=== PATIENT | female | born 1940 | race Caucasian/White ===

== ENCOUNTER → 2018-09-10 14:52 | Oncology outpatient (ONC) | payer MEDICARE, OTHER, SELFPAY ==
[2018-09-10] MEDS: ZOLEDRONIC ACID 5 MG in SODIUM CHLORIDE 0.9% 100 ML 318.75 ML IV (15:18)
[2018-09-10 15:30] VITALS: BP 140/66; PULSE 96; RESP 18; TEMP 36.6
== END ==
LOC: ONC 14:56
PROVIDERS: Visit Provider Internal Medicine
DX: M89.9 Disorder of bone, unspecified (principal)
CPT/HCPCS: 96374; J3489

== ENCOUNTER → 2018-12-04 13:09 | Outpatient (CLI) | payer MEDICARE, OTHER, SELFPAY ==
--- NOTE | 2018-12-04 | DI.CT.S_ITS ---
PROCEDURE: CT SINUS SCREEN WO CON INDICATIONS: ACUTE MAXILLARY SINUSITIS TECHNIQUE: Noncontrast 3.0 mm axial images acquired from the frontal sinuses to the mid-sella, with coronal and sagittal reformats. For radiation dose reduction, the following was used: automated exposure control, adjustment of mA and/or kV according to patient size. COMPARISON: [facility], CT, SINUS W/O CONTRAST, 12/12/2012, 14:42. FINDINGS: Image quality: Excellent. Maxillary Sinuses: No bony remodeling or destruction. Bilateral antrectomies. Sinuses are clear. Ethmoid Air Cells: No bony remodeling or destruction. Sinuses are clear. Sphenoid Sinuses: No bony remodeling or destruction. Sinuses are clear. Frontal Sinuses: No bony remodeling or destruction. Sinuses are clear. Ostiomeatal Complexes: Ostiomeatal complexes are patent. No George cells. Miscellaneous: Visualized intra-orbital contents are normal. No ruperto bullosa or paradoxical turbinate curvature. Mild left nasal septal deviation. IMPRESSION: Postsurgical changes. No active sinusitis. Dictated by: Serg Beyer M.D. on 12/04/2018 at 13:37 Approved by: Serg Beyer M.D. on 12/04/2018 at 13:49
== END ==
PROVIDERS: PCP Internal Medicine; Visit Provider Internal Medicine
DX: J01.00 Acute maxillary sinusitis, unspecified (principal)
CPT/HCPCS: 70486

== ENCOUNTER → 2020-03-10 16:56 | Outpatient (ROUT) | payer MEDICARE, OTHER, SELFPAY ==
[2020-03-10 17:26] LABS: Add Manual Diff / Slide Review NO; Basophils Absolute Auto 100 /uL (0-100); Basophils Percent Auto 1.1 % (0-2); Eosinophils Absolute Auto 200 /uL (0-450); Eosinophils Percent Auto 3.8 % (2-4); Hematocrit 38.5 % (36-46); Hemoglobin 12.8 g/dL (12.0-16.0); Lymphocytes Absolute Auto 800 /uL (1100-4500); Lymphocytes Percent Auto 14.7 % (25-40); Mean Corpuscular HGB Conc 33.2 % (30-36); Mean Corpuscular Hemoglobin 29.5 PG (26-34); Mean Corpuscular Volume 88.8 fL (80-100); Monocytes Absolute Auto 400 /uL (0-900); Neutrophils Absolute Auto 4100 /uL (1500-7000); Neutrophils Percent Auto 73.4 % (50-75); Platelet Count 276 X10^3/uL (150-400); Red Blood Cell Count 4.34 X10^6/uL (4.0-5.2); White Blood Cell Count 5.6 X10^3/uL (4.5-11.0)
[2020-03-10 17:39] LABS: Aspartate Aminotransferase 26 IU/L (14-36); BUN Creatinine Ratio 15.2 (6-22); Blood Urea Nitrogen 23 mg/dL (7-17); Calcium 9.2 mg/dL (8.4-10.2); Carbon Dioxide 32 mmol/L (22-32); Chloride 98 mmol/L (98-107); Estimated Glomerular Filt Rate 33.4 mL/min (>60); Glucose 132 mg/dL (80-110); HEMOLYSIS < 15 (0-50); Sodium 136 mmol/L (137-145)
[2020-03-10 18:12] LABS: TSH w/ Reflex to FT4 1.99 uIU/mL (0.47-4.68)
[2020-03-10 21:27] LABS: Cholesterol 244 mg/dL (140-199); HDL Cholesterol 53 mg/dL (40-60); LDL Cholesterol Calculated 153 mg/dL (<100); Triglycerides 189 mg/dL (35-150)
== END ==
PROVIDERS: PCP Internal Medicine; Visit Provider Internal Medicine
DX: I10 Essential (primary) hypertension (principal); E78.2 Mixed hyperlipidemia
CPT/HCPCS: 80048; 80061; 84443; 84450; 85025

== ENCOUNTER → 2020-03-24 15:14 | Outpatient (ROUT) | payer MEDICARE, OTHER, SELFPAY ==
[2020-03-24 15:41] LABS: BUN Creatinine Ratio 19.2 (6-22); Blood Urea Nitrogen 23 mg/dL (7-17); Calcium 9.4 mg/dL (8.4-10.2); Carbon Dioxide 28 mmol/L (22-32); Chloride 97 mmol/L (98-107); Estimated Glomerular Filt Rate 43.6 mL/min (>60); Glucose 107 mg/dL (80-110); HEMOLYSIS 15 (0-50); Potassium 4.8 mmol/L (3.4-5.1); Sodium 135 mmol/L (137-145)
== END ==
PROVIDERS: PCP Internal Medicine; Visit Provider Internal Medicine
DX: I10 Essential (primary) hypertension (principal)
CPT/HCPCS: 80048

== ENCOUNTER → 2020-08-12 13:05 | Outpatient (CLI) | payer MEDICARE, OTHER, SELFPAY ==
--- NOTE | 2020-08-12 13:08 | DI.RAD.S_ITS ---
PROCEDURE: XR CHEST 2V INDICATIONS: cough, SOB, h/o covid in Dec, r/o pneumonia TECHNIQUE: 2 views of the chest were acquired. COMPARISON: [facility], CR, XR CHEST 1 VIEW, 11/06/2017, 19:29. [facility], CR, XR CHEST 1 VIEW, 06/15/2020, 16:18. FINDINGS: Surgical changes and devices: None. Lungs and pleura: Lungs are abnormal with a persistent alveolar infiltration pattern that is moderately patchy, and equivalent to that present in May of last year. Reportedly this represents a documented manifestation of atypical/viral pneumonia. No pleural effusions or pneumothorax. Mediastinum: Mediastinal contours are normal. Heart size is normal. Bones and chest wall: No suspicious bony abnormalities. Soft tissues appear unremarkable. IMPRESSION: Persistent alveolitis pattern equivalent to that initially identified 06/15/20. Persistent atypical pneumonia pattern. Dictated by: Byron Stanton M.D. on 08/12/2020 at 13:27 Approved by: Byron Stanton M.D. on 08/12/2020 at 13:29
== END ==
PROVIDERS: PCP Internal Medicine; Referring Provider Physician Assistant; Visit Provider Physician Assistant
DX: R50.9 Fever, unspecified (principal); R05 Cough; R06.02 Shortness of breath; Z86.16 Personal history of COVID-19
CPT/HCPCS: 71046

== ENCOUNTER → 2020-09-08 15:03 | Outpatient (ROUT) | payer MEDICARE, OTHER, SELFPAY ==
[2020-09-08 15:24] LABS: Add Manual Diff / Slide Review NO; Basophils Absolute Auto 100 /uL (0-100); Eosinophils Absolute Auto 200 /uL (0-450); Eosinophils Percent Auto 2.7 % (2-4); Hematocrit 34.9 % (36-46); Lymphocytes Absolute Auto 800 /uL (1100-4500); Lymphocytes Percent Auto 12.7 % (25-40); Mean Corpuscular HGB Conc 31.6 % (30-36); Mean Corpuscular Hemoglobin 25.5 PG (26-34); Mean Corpuscular Volume 80.9 fL (80-100); Monocytes Absolute Auto 600 /uL (0-900); Monocytes Percent Auto 9.5 % (3-14); Neutrophils Absolute Auto 4800 /uL (1500-7000); Neutrophils Percent Auto 74.1 % (50-75); Platelet Count 316 X10^3/uL (150-400); Red Blood Cell Count 4.31 X10^6/uL (4.0-5.2); Red Cell Distribution Width 16.7 % (11.6-14.8); White Blood Cell Count 6.5 X10^3/uL (4.5-11.0)
[2020-09-08 15:49] LABS: Erythrocyte Sedimentation Rate 38 MM/HR (0-20)
[2020-09-08 16:15] LABS: Alanine Aminotransferase 20 IU/L (<35); Albumin 4.2 g/dL (3.5-5.0); Albumin Globulin Ratio 1.4 (1.0-2.8); Alkaline Phosphatase 108 U/L (38-126); Aspartate Aminotransferase 25 IU/L (14-36); BUN Creatinine Ratio 17.7 (6-22); Bilirubin Total 0.2 mg/dL (0.2-1.3); Blood Urea Nitrogen 25 mg/dL (7-17); C-Reactive Protein Quant 1.7 mg/dL (<1.0); Calcium 9.8 mg/dL (8.4-10.2); Carbon Dioxide 32 mmol/L (22-32); Chloride 96 mmol/L (98-107); Cholesterol 208 mg/dL (140-199); Estimated Glomerular Filt Rate 36.1 mL/min (>60); Globulin 2.9 g/dL (1.7-4.1); Glucose 95 mg/dL (80-110); HDL Cholesterol 64 mg/dL (40-60); HEMOLYSIS < 15 (0-50); LDL Cholesterol Calculated 118 mg/dL (<100); Phosphorous 5.1 mg/dL (2.8-4.1); Potassium 4.7 mmol/L (3.4-5.1); Sodium 136 mmol/L (137-145); Total Protein 7.1 g/dL (6.3-8.2); Triglycerides 131 mg/dL (35-150)
[2020-09-08 16:17] LABS: Hemoglobin A1C% w Est Avg Glu 6.3 % (4.0-6.0)
[2020-09-09 08:29] LABS: Parathyroid Hormone Int 63 pg/mL (15-65)
== END ==
PROVIDERS: PCP Internal Medicine; Visit Provider Internal Medicine
DX: J18.9 Pneumonia, unspecified organism (principal)
CPT/HCPCS: 80053; 80061; 83036; 83970; 84100; 85025; 85651; 86140

== ENCOUNTER → 2020-09-21 09:07 | Outpatient (CLI) | payer MEDICARE, SELFPAY ==
[2020-09-21 10:23] LABS: COVID19 -Nasal RAPID Negative (Negative)
== END ==
PROVIDERS: PCP Internal Medicine; Referring Provider Internal Medicine; Visit Provider Internal Medicine
DX: Z20.822 Contact with and (suspected) exposure to COVID-19 (principal)
CPT/HCPCS: 87635; C9803

== ENCOUNTER → 2020-09-22 12:53 | Outpatient (CLI) | payer MEDICARE, OTHER, SELFPAY ==
--- NOTE | 2020-09-28 10:26 | PM.PFT.1 ---
Pulmonary Function Test Referral & Results Date Patient Seen: 09/22/20 Requesting provider: Juancarlos Zapata Results: The spirometry demonstrates an FVC of 1.25 L which is 48% of predicted. The FEV1 was measured at 1.0 L which is 52% of predicted. The FEV1/FVC ratio was 80 which is 108% of predicted. Following the administration of bronchodilator there was a 41% improvement in FEF 25-75%. Lung volumes show an SVC of 1.66 L which is 63% of predicted. The diffusing capacity was measured at 18.07 which is 78% of predicted. No hemoglobin value was provided, so no correction for potential anemia could be made, if appropriate. The maximum voluntary ventilation was severely reduced Interpretation: This study demonstrates mild obstructive lung disease based on reduction FEV1 although FEV1/FVC ratio is preserved. There is also evidence of some benefit in small airway flow based on improvement in FEF 25-75%, after bronchodilator was administered There is also moderate reduction in lung volumes suggesting restrictive lung disease is present There is a minimal reduction in diffusing capacity, unless patient is anemic
== END ==
PROVIDERS: PCP Internal Medicine; Referring Provider Internal Medicine; Visit Provider Internal Medicine
DX: R06.02 Shortness of breath (principal)
CPT/HCPCS: 94060; 94726; 94729

== ENCOUNTER → 2020-09-29 13:58 | Outpatient (CLI) | payer MEDICARE, OTHER, SELFPAY | PROVIDERS: PCP Internal Medicine; Referring Provider Internal Medicine; Visit Provider Internal Medicine | DX: M85.862 Other specified disorders of bone density and structure, left lower leg (principal); M85.861 Other specified disorders of bone density and structure, right lower leg; Z78.0 Asymptomatic menopausal state | CPT/HCPCS: 77080 ==

== ENCOUNTER → 2020-11-01 19:05 | Outpatient (ROUT) | payer MEDICARE, OTHER, SELFPAY ==
[2020-11-01 19:58] LABS: Blood Urea Nitrogen 29 mg/dL (7-17); Calcium 9.2 mg/dL (8.4-10.2); Carbon Dioxide 30 mmol/L (22-32); Chloride 89 mmol/L (98-107); Glucose 124 mg/dL (80-110); HEMOLYSIS < 15 (0-50); Potassium 3.9 mmol/L (3.4-5.1); Sodium 131 mmol/L (137-145)
== END ==
PROVIDERS: PCP Internal Medicine; Visit Provider Internal Medicine
DX: R60.9 Edema, unspecified (principal)
CPT/HCPCS: 80048

== ENCOUNTER → 2020-11-02 14:42 | Outpatient (CLI) | payer MEDICARE, OTHER, SELFPAY ==
--- NOTE | 2020-11-02 | DI.CT.S_ITS ---
PROCEDURE: CT ABDOMEN PELVIS WO CON INDICATIONS: edema, unspecified abdominal pain TECHNIQUE: Noncontrast 5 mm thick sections acquired from the diaphragms to the symphysis. 5 mm coronal and sagittal reformats were then performed. For radiation dose reduction, the following was used: automated exposure control, adjustment of mA and/or kV according to patient size. COMPARISON: [facility], RG, PELVIS 1 OR 2VW, 12/30/2017, 14:55. [facility], MR, MR LUMBAR SPINE WITHOUT CONTRAST, 07/09/2018, 10:08. FINDINGS: Image quality: Reduced by absence of both oral and intravenous contrast.. ABDOMEN: Lung bases: Lung bases are clear except for mild linear atelectasis at the anterior right lung base. A small degree of atelectasis also appears present at the lateral left lower lobe.. Heart size is normal. Solid organs: Liver is normal in size. Gallbladder has been previously resected all . Pancreas is normal in contours. Spleen is normal in size. No adrenal nodules. Kidneys are normal in size, without hydronephrosis or nephrolithiasis. Peritoneum and bowel: Unenhanced bowel loops demonstrate normal wall thickness and caliber. No free fluid or air. Nodes and vessels: No retroperitoneal or mesenteric adenopathy by size criteria. Aorta and inferior vena cava are normal in caliber. Miscellaneous: No ventral hernias. PELVIS: Genitourinary: Bladder wall thickness is normal. A complex cystic and solid mass appears present at the right paramedian posterior pelvis, which is somewhat poorly visualized due to absence of both oral and intravenous contrast. This mass measures up to 7.3 x 7.6 cm, is located slightly to the right of midline, and has imaging characteristics suggestive of ovarian origin. This mass has a craniocaudad height of approximately 9.4 cm, and what appears to be a complex but predominantly cystic component superiorly measuring approximately 6.8 x 5.9 cm. Miscellaneous: No inguinal hernias or adenopathy. Bones: No suspicious bony lesions. No vertebral body compression fractures. IMPRESSION: Gynecological consultation is recommended and also pelvic ultrasound appears warranted for further characterization of a 7.6 cm maximal dimension complex cystic and solid mass at and to the right of midline likely involving the right ovary. The exact anatomic detail of this structure is difficult to define, and the complexity of the mass is best seen on the coronal re-formation imaging from source axial data, centered on series 4, image 47. Through the peritoneal space of the abdomen and pelvis no metastatic disease or evidence of carcinomatosis and ascites is found. Dictated by: Byron Stanton M.D. on 11/02/2020 at 15:35 Approved by: Byron Stanton M.D. on 11/02/2020 at 15:44
--- NOTE | 2020-11-02 | DI.US.S_ITS ---
PROCEDURE: US PERIPH VENOUS LOW EXTREM BI INDICATIONS: Short of breath; EDEMA TECHNIQUE: Real-time imaging, as well as color and pulse Doppler interrogation, were performed of the deep veins of both legs from the inguinal ligament to the popliteal fossa. COMPARISON: None. FINDINGS: Right: The common femoral, femoral and popliteal veins are normally compressible, and free of intraluminal thrombus. Color and pulse Doppler demonstrate normal phasic intravascular flow. There is normal augmentation response to distal compression maneuver. Left: The common femoral, femoral and popliteal veins are normally compressible, and free of intraluminal thrombus. Color and pulse Doppler demonstrate normal phasic intravascular flow. There is normal augmentation response to distal compression maneuver. IMPRESSION: Negative for deep venous thrombosis. Dictated by: Tyree Goodman M.D. on 11/02/2020 at 14:37 Approved by: Tyree Goodman M.D. on 11/02/2020 at 14:38
== END ==
PROVIDERS: PCP Internal Medicine; Referring Provider Internal Medicine; Visit Provider Internal Medicine
DX: R60.9 Edema, unspecified (principal); R10.9 Unspecified abdominal pain; R06.02 Shortness of breath; R19.09 Other intra-abdominal and pelvic swelling, mass and lump
CPT/HCPCS: 74176; 93970

== ENCOUNTER → 2020-11-07 19:40 | Outpatient (ROUT) | payer MEDICARE, OTHER, SELFPAY ==
[2020-11-07 20:57] LABS: Add Manual Diff / Slide Review NO; Basophils Absolute Auto 100 /uL (0-100); Eosinophils Absolute Auto 0 /uL (0-450); Eosinophils Percent Auto 0.1 % (2-4); Hematocrit 30.8 % (36-46); Hemoglobin 9.8 g/dL (12.0-16.0); Lymphocytes Absolute Auto 900 /uL (1100-4500); Lymphocytes Percent Auto 9.9 % (25-40); Mean Corpuscular HGB Conc 31.8 % (30-36); Mean Corpuscular Hemoglobin 24.7 PG (26-34); Mean Corpuscular Volume 77.8 fL (80-100); Monocytes Absolute Auto 800 /uL (0-900); Monocytes Percent Auto 8.8 % (3-14); Neutrophils Absolute Auto 6900 /uL (1500-7000); Neutrophils Percent Auto 80.2 % (50-75); Platelet Count 320 X10^3/uL (150-400); Red Blood Cell Count 3.96 X10^6/uL (4.0-5.2); Red Cell Distribution Width 15.9 % (11.6-14.8); White Blood Cell Count 8.6 X10^3/uL (4.5-11.0)
[2020-11-08 07:23] LABS: BUN Creatinine Ratio 27.6 (6-22); Blood Urea Nitrogen 34 mg/dL (7-17); Calcium 9.7 mg/dL (8.4-10.2); Carbon Dioxide 35 mmol/L (22-32); Chloride 94 mmol/L (98-107); Estimated Glomerular Filt Rate 42.2 mL/min (>60); Glucose 139 mg/dL (80-110); HEMOLYSIS < 15 (0-50); Potassium 5.1 mmol/L (3.4-5.1); Sodium 135 mmol/L (137-145)
[2020-11-08 07:33] LABS: NT-proBNP (BNP-Adult 18+) 2750 pg/mL (<450)
[2020-11-08 07:54] LABS: Cancer Antigen 125 21.6 U/mL (0-35)
[2020-11-08 10:17] LABS: HEMOLYSIS < 15 (0-50); Iron 16 ug/dL (37-170)
[2020-11-08 10:27] LABS: Percent Iron Saturation 3 % (15-50); Total Iron Binding Capacity 517 ug/dL (265-497); Transferrin 434 mg/dL (206-381)
[2020-11-08 12:08] LABS: Ferritin 10 ng/mL (11-264)
== END ==
PROVIDERS: PCP Internal Medicine; Visit Provider Internal Medicine
DX: R60.9 Edema, unspecified (principal); I50.32 Chronic diastolic (congestive) heart failure; N83.9 Noninflammatory disorder of ovary, fallopian tube and broad ligament, unspecified; C56.9 Malignant neoplasm of unspecified ovary
CPT/HCPCS: 80048; 82728; 83540; 83550; 83880; 85025; 86304

== ENCOUNTER → 2020-11-14 19:17 | Outpatient (ROUT) | payer MEDICARE, OTHER, SELFPAY ==
[2020-11-14 19:57] LABS: BUN Creatinine Ratio 27.8 (6-22); Blood Urea Nitrogen 37 mg/dL (7-17); Calcium 10.3 mg/dL (8.4-10.2); Carbon Dioxide 36 mmol/L (22-32); Chloride 93 mmol/L (98-107); Estimated Glomerular Filt Rate 38.6 mL/min (>60); Glucose 132 mg/dL (80-110); HEMOLYSIS < 15 (0-50); Sodium 139 mmol/L (137-145)
[2020-11-14 19:58] LABS: Potassium 5.7 mmol/L (3.4-5.1)
== END ==
PROVIDERS: PCP Internal Medicine; Visit Provider Internal Medicine
DX: I50.31 Acute diastolic (congestive) heart failure (principal)
CPT/HCPCS: 80048

== ENCOUNTER → 2021-11-01 12:47 | Outpatient (CLI) | payer MEDICARE, OTHER, SELFPAY ==
[2021-11-01 13:28] LABS: Hematocrit 35.2 % (36-46); Hemoglobin 11.4 g/dL (12.0-16.0); Mean Corpuscular HGB Conc 32.5 % (30-36); Mean Corpuscular Hemoglobin 25.8 PG (26-34); Mean Corpuscular Volume 79.4 fL (80-100); Platelet Count 230 X10^3/uL (150-400); Red Blood Cell Count 4.43 X10^6/uL (4.0-5.2); Red Cell Distribution Width 16.6 % (11.6-14.8); White Blood Cell Count 6.8 X10^3/uL (4.5-11.0)
[2021-11-01 13:39] LABS: Alanine Aminotransferase 16 IU/L (<35); Albumin 4.5 g/dL (3.5-5.0); Albumin Globulin Ratio 1.3 (1.0-2.8); Alkaline Phosphatase 100 U/L (38-126); Aspartate Aminotransferase 24 IU/L (14-36); Bilirubin Total 0.3 mg/dL (0.2-1.3); Calcium 9.6 mg/dL (8.4-10.2); Chloride 83 mmol/L (98-107); Cholesterol 245 mg/dL (140-199); Estimated Glomerular Filt Rate 22 mL/min (>60); Globulin 3.4 g/dL (1.7-4.1); Glucose 147 mg/dL (80-110); HDL Cholesterol 41 mg/dL (40-60); HEMOLYSIS < 15 (0-50); LDL Cholesterol Calculated 157 mg/dL (<100); Potassium 2.9 mmol/L (3.4-5.1); Sodium 134 mmol/L (137-145); Total Protein 7.9 g/dL (6.3-8.2); Triglycerides 235 mg/dL (35-150)
[2021-11-01 13:46] LABS: NT-proBNP (BNP-Adult 18+) 1170 pg/mL (<450)
[2021-11-01 13:48] LABS: BUN Creatinine Ratio 48.7 (6-22)
[2021-11-01 14:30] LABS: TSH w/ Reflex to FT4 1.21 uIU/mL (0.47-4.68)
[2021-11-01 15:36] LABS: Blood Urea Nitrogen 110 mg/dL (7-17); Carbon Dioxide 40 mmol/L (22-32)
== END ==
PROVIDERS: PCP Internal Medicine; Referring Provider Internal Medicine; Visit Provider Internal Medicine
DX: E78.2 Mixed hyperlipidemia (principal); I50.32 Chronic diastolic (congestive) heart failure; I25.10 Atherosclerotic heart disease of native coronary artery without angina pectoris; N18.31 Chronic kidney disease, stage 3a
CPT/HCPCS: 36415; 80053; 80061; 83880; 84443; 85027

== ENCOUNTER → 2021-12-14 17:03 | Outpatient (CLI) | payer MEDICARE, OTHER, SELFPAY ==
[2021-12-14 18:40] LABS: Hemoglobin 10.3 g/dL (12.0-16.0); Mean Corpuscular HGB Conc 32.1 % (30-36); Mean Corpuscular Hemoglobin 25.4 PG (26-34); Mean Corpuscular Volume 79.1 fL (80-100); Platelet Count 280 X10^3/uL (150-400); Red Blood Cell Count 4.04 X10^6/uL (4.0-5.2); Red Cell Distribution Width 17.5 % (11.6-14.8); White Blood Cell Count 5.8 X10^3/uL (4.5-11.0)
[2021-12-17 15:21] LABS: HEMOLYSIS < 15 (0-50); Iron 23 ug/dL (37-170)
[2021-12-17 15:25] LABS: Alanine Aminotransferase 14 IU/L (<35); Albumin 4.4 g/dL (3.5-5.0); Albumin Globulin Ratio 1.4 (1.0-2.8); Alkaline Phosphatase 78 U/L (38-126); Aspartate Aminotransferase 20 IU/L (14-36); Bilirubin Total 0.2 mg/dL (0.2-1.3); Calcium 9.1 mg/dL (8.4-10.2); Carbon Dioxide 36 mmol/L (22-32); Chloride 87 mmol/L (98-107); Estimated Glomerular Filt Rate 19 mL/min (>60); Globulin 3.1 g/dL (1.7-4.1); Glucose 142 mg/dL (80-110); HEMOLYSIS < 15 (0-50); Potassium 3.1 mmol/L (3.4-5.1); Sodium 135 mmol/L (137-145); Total Protein 7.5 g/dL (6.3-8.2)
[2021-12-17 15:27] LABS: BUN Creatinine Ratio 41.3 (6-22); Blood Urea Nitrogen 105 mg/dL (7-17)
[2021-12-17 15:33] LABS: Percent Iron Saturation 4 % (15-50); Total Iron Binding Capacity 531 ug/dL (265-497); Transferrin 402 mg/dL (206-381)
[2021-12-17 15:59] LABS: Cancer Antigen 125 25.5 U/mL (0-35)
[2021-12-17 16:02] LABS: Ferritin 10 ng/mL (11-264)
== END ==
PROVIDERS: PCP Internal Medicine; Referring Provider Internal Medicine; Visit Provider Internal Medicine
DX: E78.2 Mixed hyperlipidemia (principal); N18.31 Chronic kidney disease, stage 3a; I10 Essential (primary) hypertension; I25.10 Atherosclerotic heart disease of native coronary artery without angina pectoris; N83.201 Unspecified ovarian cyst, right side
CPT/HCPCS: 36415; 80053; 82728; 83540; 83550; 85027; 86304

== ENCOUNTER → 2021-12-18 15:39 | Outpatient (CLI) | payer MEDICARE, OTHER, SELFPAY ==
--- NOTE | 2021-12-18 15:42 | DI.ECHO.S_ITS ---
[facility]---------+ [facility] +---------+ : : [address] : : : : [id number] : : : : Phone: [phone]+ Echocardiogram Report + + :Name: TESSA LEWIS Study Date: 12/18/2021 Height: 62.5 in: :[facility] ReadingLocation: Weight: 227 lb : : Gender: Female BSA: 2.0 m2 : :: 1940 Age: 81 yrs BP: 138/84 mmHg: :Reason For Study: CONGESTIVE HEART FAILURE, AORTIC STENOSIS : :Ordering Physician: CARMEN, : :ROSALBA Performed By: Malena Salazar : :Referring: ROSALBA MORALES : + + Interpretation Summary The ejection fraction is estimated to be 60-65%. There is mild aortic stenosis. The peak aortic velocity is 2.7 m/sec. The right ventricular systolic pressure is estimated to be at least 29 mmHg based on an estimated right atrial pressure of 3 mm Hg. Procedure: A two-dimensional transthoracic echocardiogram with color flow and Doppler was performed. The study quality was technically adequate. Comparison is made with the echocardiogram of 11/08/2017. The patient had frequent PVCs during the exam. The heart rate ranged between 83-134 bpm during the study. Left Ventricle: The left ventricle is normal in size and wall thickness. The ejection fraction is estimated to be 60-65%. There are no obvious focal wall motion abnormalities noted but poor endocardial definition reduces the sensitivity for the detection of such. Right Ventricle: The right ventricle is normal in size and function. Atria: The left atrium is moderately dilated. Right atrial size is normal. There is no Doppler evidence for an interatrial shunt. Mitral Valve: The mitral valve leaflets appear mildly thickened, but open well. There is moderate mitral annular calcification. There is trace mitral regurgitation. Aortic Valve: The aortic valve is trileaflet. The aortic valve is mildly calcified. There is mild aortic stenosis. The peak aortic velocity is 2.7 m/sec. The aortic valve mean gradient is 19 mmHg. The calculated aortic valve area is 1.3 cm2. There is trace aortic regurgitation. Tricuspid Valve: The tricuspid valve is normal in structure and function. The right ventricular systolic pressure is estimated to be at least 29 mmHg based on an estimated right atrial pressure of 3 mm Hg. There is trace tricuspid regurgitation. Pulmonic Valve: The pulmonic valve is not well visualized. There is no pulmonic valvular regurgitation. Great Vessels: The aortic root is normal size. The dimensions of the ascending aorta are normal. The IVC is of normal diameter and collapses greater than 50% with a sniff. This suggests a low right atrial pressure of 3 mm Hg. Pericardium/ Pleura There is no pericardial effusion. There is no pleural effusion. MMode/2D Measurements & Calculations LVIDd: 4.6 cm LVOT diam: 2.0 cm LVIDs: 3.0 cm Ao root diam: 3.0 cm FS: 34.3 % asc Aorta Diam: 3.3 cm IVSd: 0.96 cm LVPWd: 1.3 cm LV osborn. diameter/BSA (cm/m^2): 2.3 LV sys. diameter/BSA (cm/m^2): 1.5 LA A2 area: 22.9 cm2 RA long axis: 4.8 cm LA A4 area: 27.8 cm2 RA area: 16.5 cm2 LA length (vol): 6.1 cm RA vol: 47.7 ml LA vol: 88.4 ml RA : 23.5 ml/m2 LA vol index: 43.6 ml/m2 IVC diam: 1.9 cm RVD1 (basal): 3.1 cm RVD2 (mid): 2.9 cm TAPSE: 2.0 cm Doppler Measurements & Calculations Ao V2 max: 277.5 cm/sec LVOT Max Jose: 113.6 cm/sec Ao V2 mean: 192.6 cm/sec LV V1 max P.2 mmHg Ao max P.1 mmHg LV V1 VTI: 25.8 cm Ao mean P.5 mmHg GERBER(I,D): 1.6 cm2 Ao V2 VTI: 54.2 cm GERBER(V,D): 1.3 cm2 sev ratio: 0.48 GERBER indexed to BSA (cm^2/m^2): 0.76 MV E max jose: 109.1 cm/sec TR max jose: 255.6 cm/sec MV A max jose: 144.3 cm/sec TR max P.1 mmHg MV E/A: 0.76 PA V2 max: 128.7 cm/sec Med Peak E' Jose: 9.2 cm/sec PA V2 mean: 94.8 cm/sec E/E' med: 11.9 PA mean P.8 mmHg Lat Peak E' Jose: 6.9 cm/sec PA pr(Accel): 46.5 mmHg E/E' lat: 15.8 E/e' average: 13.8 MV dec time: 0.19 sec SV(LVOT): 84.1 ml Reading Physician:09:53 AM
== END ==
PROVIDERS: PCP Internal Medicine; Referring Provider Internal Medicine; Visit Provider Internal Medicine
DX: I35.0 Nonrheumatic aortic (valve) stenosis (principal); I50.32 Chronic diastolic (congestive) heart failure
CPT/HCPCS: 93306

== ENCOUNTER → 2022-01-10 11:07 | Outpatient (CLI) | payer MEDICARE, OTHER, SELFPAY ==
[2022-01-10 12:25] LABS: Hematocrit 28.9 % (36-46); Hemoglobin 9.4 g/dL (12.0-16.0); Mean Corpuscular HGB Conc 32.5 % (30-36); Mean Corpuscular Hemoglobin 25.7 PG (26-34); Mean Corpuscular Volume 79.3 fL (80-100); Platelet Count 346 X10^3/uL (150-400); Red Blood Cell Count 3.65 X10^6/uL (4.0-5.2); Red Cell Distribution Width 19.3 % (11.6-14.8); White Blood Cell Count 10.4 X10^3/uL (4.5-11.0)
[2022-01-10 12:43] LABS: Alanine Aminotransferase 29 IU/L (<35); Albumin 4.1 g/dL (3.5-5.0); Albumin Globulin Ratio 1.4 (1.0-2.8); Alkaline Phosphatase 119 U/L (38-126); Aspartate Aminotransferase 28 IU/L (14-36); BUN Creatinine Ratio 51.7 (6-22); Bilirubin Total 0.3 mg/dL (0.2-1.3); Blood Urea Nitrogen 60 mg/dL (7-17); Calcium 8.8 mg/dL (8.4-10.2); Chloride 83 mmol/L (98-107); Estimated Glomerular Filt Rate 48 mL/min (>60); Globulin 2.9 g/dL (1.7-4.1); Glucose 156 mg/dL (80-110); HEMOLYSIS < 15 (0-50); Potassium 3.1 mmol/L (3.4-5.1); Sodium 137 mmol/L (137-145)
[2022-01-10 12:49] LABS: Carbon Dioxide 37 mmol/L (22-32)
[2022-01-10 13:17] LABS: Ferritin 22 ng/mL (11-264)
[2022-01-10 21:38] LABS: HEMOLYSIS < 15 (0-50); Iron 33 ug/dL (37-170)
[2022-01-10 22:00] LABS: Percent Iron Saturation 8 % (15-50); Total Iron Binding Capacity 434 ug/dL (265-497); Transferrin 320 mg/dL (206-381)
== END ==
PROVIDERS: PCP Internal Medicine; Referring Provider Internal Medicine; Visit Provider Internal Medicine
DX: N18.31 Chronic kidney disease, stage 3a (principal); D64.9 Anemia, unspecified; I25.10 Atherosclerotic heart disease of native coronary artery without angina pectoris
CPT/HCPCS: 36415; 80053; 82728; 83540; 83550; 85027

== ENCOUNTER → 2022-02-01 16:28 | Outpatient (CLI) | payer MEDICARE, OTHER, SELFPAY ==
[2022-02-01 18:01] LABS: Alanine Aminotransferase 17 IU/L (<35); Albumin 4.2 g/dL (3.5-5.0); Albumin Globulin Ratio 1.3 (1.0-2.8); Alkaline Phosphatase 112 U/L (38-126); Aspartate Aminotransferase 21 IU/L (14-36); BUN Creatinine Ratio 34.1 (6-22); Bilirubin Total 0.2 mg/dL (0.2-1.3); Blood Urea Nitrogen 56 mg/dL (7-17); Calcium 9.2 mg/dL (8.4-10.2); Chloride 86 mmol/L (98-107); Estimated Glomerular Filt Rate 32 mL/min (>60); Globulin 3.3 g/dL (1.7-4.1); Glucose 119 mg/dL (80-110); HEMOLYSIS < 15 (0-50); Potassium 2.9 mmol/L (3.4-5.1); Sodium 134 mmol/L (137-145); Total Protein 7.5 g/dL (6.3-8.2)
[2022-02-01 18:28] LABS: Carbon Dioxide 42 mmol/L (22-32)
== END ==
PROVIDERS: PCP Internal Medicine; Referring Provider Internal Medicine; Visit Provider Internal Medicine
DX: I50.32 Chronic diastolic (congestive) heart failure (principal); J96.11 Chronic respiratory failure with hypoxia
CPT/HCPCS: 36415; 80053

== ENCOUNTER → 2022-02-09 12:55 | Outpatient (CLI) | payer MEDICARE, OTHER, SELFPAY ==
[2022-02-09 15:43] LABS: BUN Creatinine Ratio 56.1 (6-22); Blood Urea Nitrogen 74 mg/dL (7-17); Calcium 9.1 mg/dL (8.4-10.2); Chloride 87 mmol/L (98-107); Estimated Glomerular Filt Rate 41 mL/min (>60); Glucose 126 mg/dL (80-110); HEMOLYSIS < 15 (0-50); Potassium 3.1 mmol/L (3.4-5.1); Sodium 137 mmol/L (137-145)
[2022-02-09 16:04] LABS: Carbon Dioxide 39 mmol/L (22-32)
== END ==
PROVIDERS: PCP Internal Medicine; Referring Provider Internal Medicine; Visit Provider Internal Medicine
DX: E87.6 Hypokalemia (principal)
CPT/HCPCS: 36415; 80048

== ENCOUNTER 2022-03-01 16:16 | Emergency (ER) | payer MEDICARE, OTHER, SELFPAY ==
[2022-03-01 16:40] VITALS: BP 145/69; PULSE 102; RESP 26; TEMP 36.9; O2SAT 93; BMI 45.7
[2022-03-01 19:30] VITALS: BP 147/80; PULSE 91; RESP 24; O2SAT 92
[2022-03-01 19:31] VITALS: PULSE 98; O2SAT 93
--- NOTE | 2022-03-01 19:44 | ED.EXTPRO ---
HPI - Extremity Problem General Chief complaint: Extremity Problem,Nontraumatic Stated complaint: possible spider bite arm going down leg now Time Seen by Provider: 03/01/22 18:06 Source: patient and family Mode of arrival: Wheelchair History of Present Illness HPI Narrative: 81F non smoker with extensive medical history including Aortic Stenosis, depression, paroxysmal AFib, chronic respiratory failure with hypoxemia on home oxygen, chronic kidney disease and coronary artery disease presents with family in the chief complaint of some redness and minimal swelling on her left forearm. She has psoriasis and on occasion gets cracks in the skin and subsequent super infections. She has had some redness extending from her elbow down the lateral side of her forearm for the past few days. She denies systemic findings including fever, chills nor nausea or vomiting. She feels quite well otherwise and has no complaints. We did discuss doing a large workup including labs and the possibility of imaging but she and family state it is not necessary and if she moves in the wrong direction they will return. Related Data Home Medications Medication Instructions Recorded Confirmed beclomethasone dipropionate 80 g inhalation 09/22/21 02/14/22 mcg/actuation HFA breath activated aerosol (Qvar RediHaler) carvedilol 3.125 mg tablet 3.125 mg PO BID 09/22/21 02/14/22 clopidogrel 75 mg tablet 75 mg PO DAILY 09/22/21 02/14/22 hydrocodone 10 mg-acetaminophen 1 tab PO QID PRN pain 09/22/21 02/14/22 325 mg tablet magnesium oxide 400 mg (241.3 mg 400 mg PO BID 09/22/21 02/14/22 magnesium) tablet mupirocin 2 % topical ointment g topical 09/22/21 02/14/22 pramipexole 0.25 mg tablet 0.5 mg PO BEDTIME 09/22/21 02/14/22 syringe with needle 3 mL 25 gauge #1 ea 09/22/21 02/14/22 x 1 (BD Luer-Myra Syringe) tizanidine 2 mg tablet 4 mg PO DAILY 09/22/21 02/14/22 clobetasol 0.05 % scalp solution 1 applic topical DAILY PRN 01/10/22 02/14/22 clobetasol 0.05 % topical cream 1 applic topical BID PRN 01/10/22 02/14/22 ketoconazole 2 % shampoo 1 applic topical 2XW PRN 01/10/22 02/14/22 torsemide 20 mg tablet 40 mg PO DAILY 01/10/22 02/14/22 Previous Rx's Medication Instructions Recorded pantoprazole 40 mg tablet,delayed 40 mg PO BID #180 tabs 02/01/22 release tiotropium 2.5 mcg-olodaterol 2.5 2 inh inhalation TID #12 grams 02/01/22 mcg/actuation mist for inhalation (Stiolto Respimat) cyanocobalamin (vitamin B-12) 1,000 mcg IM QWEEK #10 mL 02/05/22 1,000 mcg/mL injection solution metolazone 5 mg tablet 5 mg PO DAILY #90 tabs 02/05/22 potassium chloride 10 mEq 10 meq PO BID #180 caps 02/08/22 capsule,extended release mirtazapine 30 mg tablet 30 mg PO DAILY #90 tabs 02/13/22 budesonide 3 mg See Rx Instructions .Route 02/23/22 capsule,delayed,extended release .COMPLEX #270 caps doxycycline hyclate 100 mg tablet 100 mg PO BID #20 tabs 03/01/22 Allergies Allergy/AdvReac Type Severity Reaction Status Date / Time atorvastatin [From Lipitor] Allergy Intermediate Muscle Pain Verified 03/01/22 16:46 midazolam [From Versed] Allergy Intermediate Hallucinati Verified 03/01/22 16:46 ng aspirin Allergy Unknown Verified 03/01/22 16:46 NSAIDS (Non-Steroidal Allergy Unknown Verified 03/01/22 16:46 Anti-Inflamma gabapentin AdvReac Intermediate Muscle Pain Verified 03/01/22 16:46 adhesive AdvReac Mild Hives Verified 03/01/22 16:46 Review of Systems Review of Systems Narrative: GENERAL: Denies chills, fatigue, malaise, fever, sweats. HEENT: Denies sinus pain, ear pain, sore throat, difficulty swallowing, dizziness. RESPIRATORY: Denies dyspnea, cough, wheezing, hemoptysis, sputum. CARDIOVASCULAR: Denies chest pain, palpitations, orthopnea, edema, GASTROINTESTINAL: Denies nausea, vomiting, abdominal pain, diarrhea, constipation, melena. : Denies dysuria, frequency, incontinence, hematuria, urinary retention. MUSCULOSKELETAL: denies weakness, joint pain, or bony pain SKIN: See HPI NEUROLOGIC: Denies weakness, headache, numbness, change in speech, confusion, seizures, incoordination. PSYCHIATRIC: No concerning psychosocial issues. 12 point review of systems is negative except for those stated above Patient History Medical History Acute bronchitis Anemia Aortic valve stenosis, nonrheumatic Cataracts, bilateral (~2015) Cervical spine disease (~1993) Chicken pox Chronic back pain Chronic respiratory failure with hypoxia Coronary artery disease Depression, recurrent Fibroids Fractures (~1993) Gastric ulcer (~2018) GI bleeding (~2018) Hemorrhoid (~1977) Measles Mixed hyperlipidemia Mumps Myocardial infarction (~2020) Obstructive sleep apnea Osteopenia Ovarian cyst (~2020) Paroxysmal atrial fibrillation Recurrent sinusitis Restless leg syndrome Right ovarian cyst Rubella Skin cancer (~2018) Stage 3a chronic kidney disease (CKD) Surgical History Anesthesia History of appendectomy History of breast mammoplasty History of cataract removal with insertion of prosthetic lens History of cholecystectomy History of coronary artery stent placement (~2020) History of hysterectomy History of knee replacement History of laminectomy History of nasal surgery History of spinal fusion Family History Father History of heart disease Mother Hypertension Brother Cancer Sister Diabetes mellitus Hypertension Grandfather Stroke Grandfather History of heart disease Grandmother History of heart disease Hypertension Social History Smoking Status: Never smoker Smoking Status: Never smoker alcohol intake frequency: 0-2 drinks per day Substance Use Type: does not use Exam Narrative Exam Narrative: GEN: AOx3 and in mild distress EYES: Pupils are equal, round, and reactive to light and accommodation. Extraoccular muscles are intact bilaterally. There is no subconjunctival hemorrhage or exudate. CHEST: Lungs are clear to auscultation bilaterally and free of wheezes, rales, or rhonchi. Heart rate is regular rhythm, there are no murmurs, clicks, rubs, or gallops. There is no chest wall tenderness. ABD: Abdomen is soft and nontender. There is no guarding or rebound. Bowel sounds are normal in all 4 quadrants. There is no mass or organomegaly. EXT: Minimal swelling of lateral forearm with psoriasis and scaling overlying the olecranon with out induration or fluctuance. She has full, painless range of motion with flexion and extension as well as pronation and supination at the elbow suggesting a very low likelihood of any septic arthritis. She has no pain or swelling of her upper arm. SKIN: Otherwise Warm, pink, and dry. No erythema or rash Initial Vital Signs Initial Vital Signs: Vital Signs Temperature 98.5 F 03/01/22 16:40 Pulse Rate 102 H 03/01/22 16:40 Respiratory Rate 26 H 03/01/22 16:40 Blood Pressure 145/69 H 03/01/22 16:40 Pulse Oximetry 93 03/01/22 16:40 Oxygen Delivery Method 03/01/22 16:40 Oxygen Flow Rate 5 03/01/22 16:40 Course Orders Ordered: ED Orders 03/01/22 19:33 Urine Culture Stat Urine Microscopic Stat Discontinued Medications Doxycycline Hyclate (Doxycycline Hyclate 100 Mg Tablet) 100 mg PO NOW ONE Stop: 03/01/22 19:55 Last Admin: 03/01/22 19:59 Dose: 100 mg Vital Signs Vital signs: Vital Signs - 8 hr 03/01/22 16:40 03/01/22 19:31 03/01/22 20:00 Temperature 98.5 F Pulse Rate 102 H 98 H 90 Respiratory Rate 26 H Blood Pressure 145/69 H Pulse Oximetry 93 93 95 Oxygen Delivery Method Nasal Cannula Oxygen Flow Rate 5 03/01/22 19:30 Temperature Pulse Rate 91 H Respiratory Rate 24 Blood Pressure 147/80 H Pulse Oximetry 92 Oxygen Delivery Method Nasal Cannula Oxygen Flow Rate 3 MDM - Extremity (Nontraumatic) Lab Data Labs: Lab Results 03/01/22 Range/Units 19:33 Urine RBC 1-5/hpf (0-5/HPF) Urine WBC 1-5/hpf (0-5/HPF) Ur Squamous Epith Cells 0-1 /hpf (0-5/HPF) Amorphous Sediment 1+ Urine Bacteria Moderate (10-30) H (None) Urine Mucus 1+ H (Negative) Ur Culture Indicated? Specimen cultured Urine Dip Bedside Urine Glucose Negative Bedside Urine Bilirubin - Negative Bedside Urine Ketone - Negative Urine Specific [place] 1.015 Bedside Urine Occult Blood +++ Bedside Urine pH 6.0 Bedside Urine Protein - Negative Bedside Urine Urobilinogen - Negative Bedside Urine Nitrite - Negative Bedside Urine Leukocytes - Negative Esterase MDM Narrative Medical decision making narrative: 81-year-old female with extensive medical history but a very reassuring history and physical. No signs of sepsis, nor signs suggestive of septic arthritis or need for I&D. DVT considered but thought unlikely given history and physical exam. As mentioned above we did discuss a more in-depth, full workup but at this point time we will hold off given how well she feels on the whole. Discharge Plan Departure Patient Disposition: Home Clinical Impression: Cellulitis Instructions: DI for Cellulitis -- Adult Activity Restrictions/Additional Instructions: *You have been diagnosed with [left forearm cellulitis] *What to do: *Please continue to take your regular medications as directed. [ x] New medication prescriptions sent to your pharmacy: [ ] [ ] New medication written as a paper prescription [ ] No new medications given *Please follow up with your primary care provider in 2-3 days, call for an appointment. Let them know you were seen in the Emergency Department and that we ask that you be seen in follow up. We will electronically transmit a record of today's note if your PCP is in our system *If you do not have a primary care provider please contact the [facility] Resource line at [phone]. They will ask some questions about your medical history and help get you set up with a doctor in the community. *Return to Emergency Department if you should have any new, worsening or concerning symptoms, such as [fever greater than 101 F, shaking chills, worsening pain, persistent vomiting or other bothersome symptoms] Prescriptions: New doxycycline hyclate 100 mg tablet 100 mg PO BID Qty: 20 0RF No Action metolazone 5 mg tablet 5 mg PO DAILY Qty: 90 1RF Label Comments: TAKE 1 TABLET (5mg) BY MOUTH EVERY DAY cyanocobalamin (vitamin B-12) 1,000 mcg/mL solution 1,000 mcg IM QWEEK Qty: 10 3RF Label Comments: INJECT 1 ml SUBCUTANEOUSLY ONCE WEEKLY potassium chloride 10 mEq capsule, extended release 10 meq PO BID Qty: 180 0RF mirtazapine 30 mg tablet 30 mg PO DAILY Qty: 90 3RF budesonide 3 mg capsule,delayed,extend.release See Rx Instructions .ROUTE .COMPLEX Qty: 270 3RF Dose Instruction: TAKE 3 CAPSULES (9mg) BY MOUTH EVERY DAY for 90 days Rx Instructions: TAKE 3 CAPSULES (9mg) BY MOUTH EVERY DAY for 90 days Stiolto Respimat 2.5-2.5 mcg/actuation mist 2 inh inhalation TID Qty: 12 3RF pantoprazole 40 mg tablet,delayed release (DR/EC) 40 mg PO BID Qty: 180 1RF hydrocodone-acetaminophen 10-325 mg tablet 1 tab PO QID PRN (Reason: pain) Label Comments: TAKE 1 TABLET BY MOUTH EVERY 4 TO 6 HOURS NEEDED for 28 days (max 5 tablets per day & ok TO fill 09/12/21, start taking 09/13/21) magnesium oxide 400 mg (241.3 mg magnesium) tablet 400 mg PO BID Label Comments: TAKE 1 TABLET (400mg) BY MOUTH TWICE DAILY carvedilol 3.125 mg tablet 3.125 mg PO BID tizanidine 2 mg tablet 4 mg PO DAILY mupirocin 2 % ointment topical Label Comments: Apply 1 gram TO THE AFFECTED AREA(S) TWICE DAILY. Clean & dry area prior TO use. Qvar RediHaler 80 mcg/actuation HFA aerosol breath activated inhalation Label Comments: INHALE 2 PUFFS BY MOUTH into lungs TWICE DAILY INSTRUCTED clopidogrel 75 mg tablet 75 mg PO DAILY pramipexole 0.25 mg tablet 0.5 mg PO BEDTIME Label Comments: TAKE 1 TO 2 TABLETS (0.25 TO 0.5mg) BY MOUTH NIGHTLY before bedtime for 90 days (DME) BD Luer-Myra Syringe 3 mL 25 gauge x 1 syringe See Rx Instructions .ROUTE .MEDSUPPLY Qty: 1 Label Comments: USE FOR B12 INJECTIONS Rx Instructions: As directed torsemide 20 mg tablet 40 mg PO DAILY clobetasol 0.05 % cream 1 applic topical BID PRN Label Comments: APPLY TOPICALLY TO THE AFFECTED AREA(S) ON arms & bilateral lower extremities TWICE DAILY for max of 2 WEEKS per month & REPEAT NEEDED clobetasol 0.05 % solution 1 applic topical DAILY PRN Label Comments: APPLY TOPICALLY TO THE AFFECTED AREA(S) ON scalp TWICE DAILY for 2 WEEKS per month & REPEAT NEEDED INSTRUCTED ketoconazole 2 % shampoo 1 applic topical 2XW PRN Referrals: Juancarlos Zapata MD [Primary Care Provider] - Visit Report Forms: Patient Portal/API
[2022-03-01] MEDS: DOXYCYCLINE HYCLATE 100 MG TABLET PO (19:59)
[2022-03-01 20:00] VITALS: PULSE 90; O2SAT 95
[2022-03-01 20:00] LABS: Amorphous Sediment Urine 1+; Bacteria Urine Moderate (10-30); Culture Indicated Urine Specimen Cultured; Mucus Urine 1+ (Negative); RBC Urine 1-5/HPF (0-5/HPF); Squamous Epithelial Cell Urine 0-1 /HPF (0-5/HPF); WBC Urine 1-5/HPF (0-5/HPF)
[2022-03-01 20:09] VITALS: BP 168/72; PULSE 108; O2SAT 92
[2022-03-01 20:16] VITALS: PULSE 106; O2SAT 93
== END 2022-03-01 20:22 | disposition home or self-care (01) ==
PROVIDERS: Emergency Provider Emergency Medicine; PCP Internal Medicine
DX: L03.114 Cellulitis of left upper limb (principal)
CPT/HCPCS: 81003; 81015; 87086; 99283; 99284

== ENCOUNTER → 2022-03-19 13:06 | Outpatient (CLI) | payer MEDICARE, OTHER, SELFPAY ==
--- NOTE | 2022-03-19 13:08 | DI.ECHO.S_ITS ---
[facility] +---------+ : : [address] : : : : [id number] : : : : Phone: [phone]---------+ Echocardiogram Report + + :Name: TESSA LEWIS Study Date: 03/19/2022 Height: 62.5 in: :[facility] ReadingLocation: Weight: 231 lb : : Gender: Female BSA: 2.0 m2 : :: 1940 Age: 81 yrs BP: 123/79 mmHg: :Reason For Study: DIASTOLIC HEART FAILURE : :Ordering Physician: FILIPE, : :BEATRICE Performed By: Malena Salazar : :Referring: BEATRICE DENT : + + Interpretation Summary The left ventricular cavity is small. There is mild-moderate concentric left ventricular hypertrophy. The left ventricle is hyperdynamic. The ejection fraction is estimated to be 75-80%. At least mild intracavitary obstruction. In comparison to previous study, LV function is more hyperdynamic. Likely patient is in atrial flutter with fast ventricular rate. The right ventricle is normal size. There is moderate mitral annular calcification. Morphologically no critical mitral stenosis. Overall mild to moderate mitral stenosis. The aortic valve is moderately calcified. The peak aortic velocity is 2.6 m/sec. The aortic valve mean gradient is 16 mmHg. The calculated aortic valve area is 1.3 cm2. The peak aortic velocity on the previous exam was 3.3 m/sec. No critical aortic stenosis. There is mild to moderate tricuspid regurgitation. Compared to the prior echo exam, there has been an increase in TR severity. The right ventricular systolic pressure is estimated to be at least 36 mmHg based on an estimated right atrial pressure of 3 mm Hg. Suspect possible atrial flutter with heart rate 120-140 bpm. Spoke to patient's daughter Cheyenne and advised her to bring patient to the hospital. Informed [facility] ER physician. Procedure: A two-dimensional transthoracic echocardiogram with color flow and Doppler was performed. The study quality was technically adequate. Comparison is made with the echocardiogram of 01/23/2022. Suspect possible atrial flutter with heart rate 120-140 bpm. Left Ventricle: The left ventricular cavity is small. There is mild-moderate concentric left ventricular hypertrophy. There is no thrombus. The ejection fraction is estimated to be 75-80%. The left ventricle is hyperdynamic. There are no focal wall motion abnormalities. Diastolic function could not be accurately assessed due to tachycardia. Right Ventricle: The right ventricle is normal size. The right ventricular systolic function is normal. Atria: The left atrium is mildly dilated. The left atrium has mildly decreased in size since the prior echo exam. The right atrium is normal in size. Mitral Valve: There is moderate mitral annular calcification. The mitral valve leaflets are mildly calcified. The mitral valve mean gradient is 6.7 mmHg. No significant mitral valve stenosis. There is mild mitral regurgitation. Aortic Valve: The aortic valve is trileaflet. The aortic valve is moderately calcified. The peak aortic velocity is 2.6 m/sec. The aortic valve mean gradient is 16 mmHg. The calculated aortic valve area is 1.3 cm2. The peak aortic velocity on the previous exam was 3.3 m/sec. Tricuspid Valve: The tricuspid valve is not well visualized, but is grossly normal. There is mild to moderate tricuspid regurgitation. The right ventricular systolic pressure is estimated to be at least 36 mmHg based on an estimated right atrial pressure of 3 mm Hg. Compared to the prior echo exam, there has been an increase in TR severity. Pulmonic Valve: The pulmonic valve is not well seen, but is grossly normal. There is mild pulmonic regurgitation. Great Vessels: The aortic root is normal size. The dimensions of the ascending aorta are normal. The IVC is of normal diameter and collapses greater than 50% with a sniff. This suggests a low right atrial pressure of 3 mm Hg. Pericardium/ Pleura There is no pericardial effusion. There is no pleural effusion. MMode/2D Measurements & Calculations LVIDd: 3.3 cm LVOT diam: 2.0 cm LVIDs: 1.8 cm Ao root diam: 3.0 cm FS: 44.7 % asc Aorta Diam: 3.2 cm IVSd: 1.3 cm LVPWd: 1.5 cm LV osborn. diameter/BSA (cm/m^2): 1.6 LV sys. diameter/BSA (cm/m^2): 0.90 LA A2 area: 21.2 cm2 RA long axis: 5.0 cm LA A4 area: 21.4 cm2 RA area: 14.6 cm2 LA length (vol): 5.2 cm RA vol: 36.3 ml LA vol: 73.5 ml RA : 17.8 ml/m2 LA vol index: 36.0 ml/m2 IVC diam: 1.4 cm RVD1 (basal): 2.8 cm RVD2 (mid): 2.3 cm TAPSE: 1.4 cm Doppler Measurements & Calculations Ao V2 max: 260.3 cm/sec LVOT Max Jose: 109.1 cm/sec Ao V2 mean: 178.1 cm/sec LV V1 max P.8 mmHg Ao max P.1 mmHg LV V1 VTI: 17.4 cm Ao mean P.0 mmHg GERBER(I,D): 1.5 cm2 Ao V2 VTI: 35.5 cm GERBER(V,D): 1.3 cm2 sev ratio: 0.49 GERBER indexed to BSA (cm^2/m^2): 0.74 MV E max jose: 149.0 cm/sec TR max jose: 287.7 cm/sec MV A max jose: 1.6 cm/sec TR max P.1 mmHg MV E/A: 91.4 PA pr(Accel): 41.3 mmHg Med Peak E' Jose: 5.6 cm/sec E/E' med: 26.5 Lat Peak E' Jose: 12.0 cm/sec E/E' lat: 12.4 E/e' average: 19.4 MV dec time: 0.12 sec MVA(VTI): 2.9 cm2 MV V2 mean: 117.2 cm/sec SV(LVOT): 53.9 ml MV mean P.7 mmHg MV V2 VTI: 18.4 cm Reading Physician:05:49 PM
== END ==
PROVIDERS: PCP Internal Medicine; Referring Provider Internal Medicine Cardiovascular Disease; Visit Provider Internal Medicine Cardiovascular Disease
DX: I50.32 Chronic diastolic (congestive) heart failure (principal); R06.00 Dyspnea, unspecified; I35.0 Nonrheumatic aortic (valve) stenosis; I51.7 Cardiomegaly
CPT/HCPCS: 93306

== ENCOUNTER → 2022-04-11 16:14 | Outpatient (CLI) | payer MEDICARE, OTHER, SELFPAY ==
[2022-04-11 16:49] LABS: Hematocrit 29.1 % (36-46); Hemoglobin 9.3 g/dL (12.0-16.0); Mean Corpuscular HGB Conc 31.9 % (30-36); Mean Corpuscular Hemoglobin 25.1 PG (26-34); Mean Corpuscular Volume 78.7 fL (80-100); Platelet Count 255 X10^3/uL (150-400); Red Cell Distribution Width 18.4 % (11.6-14.8); White Blood Cell Count 6.3 X10^3/uL (4.5-11.0)
[2022-04-11 17:12] LABS: BUN Creatinine Ratio 44.3 (6-22); Blood Urea Nitrogen 66 mg/dL (7-17); Calcium 9.2 mg/dL (8.4-10.2); Chloride 86 mmol/L (98-107); Estimated Glomerular Filt Rate 36 mL/min (>60); Glucose 140 mg/dL (80-110); HEMOLYSIS < 15 (0-50); Potassium 3.5 mmol/L (3.4-5.1); Sodium 137 mmol/L (137-145)
[2022-04-11 17:21] LABS: Carbon Dioxide 38 mmol/L (22-32)
== END ==
PROVIDERS: PCP Internal Medicine; Referring Provider Internal Medicine; Visit Provider Internal Medicine
DX: D50.9 Iron deficiency anemia, unspecified (principal); N18.31 Chronic kidney disease, stage 3a
CPT/HCPCS: 36415; 80048; 85027

== ENCOUNTER → 2022-05-14 15:45 | Outpatient (CLI) | payer MEDICARE, OTHER, SELFPAY ==
[2022-05-14 16:14] LABS: Hematocrit 29.5 % (36-46); Mean Corpuscular HGB Conc 30.5 % (30-36); Mean Corpuscular Hemoglobin 24.6 PG (26-34); Mean Corpuscular Volume 80.5 fL (80-100); Platelet Count 196 X10^3/uL (150-400); Red Blood Cell Count 3.67 X10^6/uL (4.0-5.2); Red Cell Distribution Width 17.3 % (11.6-14.8); White Blood Cell Count 5.6 X10^3/uL (4.5-11.0)
[2022-05-14 16:31] LABS: BUN Creatinine Ratio 28.5 (6-22); Blood Urea Nitrogen 41 mg/dL (7-17); Calcium 8.5 mg/dL (8.4-10.2); Chloride 92 mmol/L (98-107); Estimated Glomerular Filt Rate 37 mL/min (>60); Glucose 123 mg/dL (80-110); Potassium 4.1 mmol/L (3.4-5.1); Sodium 139 mmol/L (137-145)
[2022-05-14 16:37] LABS: HEMOLYSIS 18 (0-50)
[2022-05-14 16:54] LABS: Carbon Dioxide 39 mmol/L (22-32)
== END ==
PROVIDERS: PCP Internal Medicine; Referring Provider Internal Medicine; Visit Provider Internal Medicine
DX: D50.9 Iron deficiency anemia, unspecified (principal); N18.31 Chronic kidney disease, stage 3a
CPT/HCPCS: 36415; 80048; 85027